=== PATIENT | female | born 1985 | race Caucasian/White ===

== ENCOUNTER 2025-07-15 15:28 | Emergency (ER) | payer OTHER, SELFPAY ==
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
[2025-07-15 15:53] VITALS: BP 105/74; PULSE 109; TEMP 37.2; O2SAT 99; BMI 46.1
--- OUTSIDE RECORDS SUMMARY | 2025-07-15 15:57 | XMS_ITS | Encounter Summary ---
Author Organization [facility] Address [address] [place] [address] Care Team Providers Care Sweet Goods Machine Operator Name Role Phone Carey Gan CNP Primary Care Provider +1- [phone] Encounter Details DateTypeDepartmentCare Team (Latest Contact Info)Wxvdiqjbfcf04/22/2025Travel Social History Tobacco UseTypesPacks/DayYears UsedDateSmoking Tobacco: NeverSmokeless Tobacco: NeverAlcohol UseStandard Drinks/WeekCommentsNo0 (1 standard drink = 0.6 oz pure alcohol)[facility] UtilitiesAnswerDate RecordedIn the past 12 months has the [employer], gas, oil, or water [employer] threatened to shut off services in your [...] InformationValueDate RecordedSex Assigned at BirthNot on fileLegal TuiAbqwtt64/25/2014 5:22 AM EDTGender IdentityFemale 07/27/2018 3:28 PM ESTSexual JrynmqvkhbxRzdjiaoj14/18/2022 10:03 AM EDT documented as of this encounter Plan of Treatment DateTypeDepartmentCare Team (Latest Contact Info)Symhddgiodc07/13/2026 9:00 AM ESTHospital Encounter [facility] Epilepsy Monitoring Unit [address] [place] [address] Ginger Ramirez MD [address] [place] [address] documented as of this encounter Visit Diagnoses Not on filedocumented in this encounter Care Teams Team MemberRelationshipSpecialtyStart DateEnd Date Carey Gan, ROLANDA [address] [place] [address] PCP - GeneralNurse Practitioner11/30/24documented as of this encounter
--- OUTSIDE RECORDS SUMMARY | 2025-07-15 15:57 | XMS_ITS | Clinical Summary ---
Author Organization [facility] Address [address] [place] [address] Care Team Providers Care Collision Estimator Name Role Phone Unknown, Provider Primary Care Provider Unavaila ble Allergies Active AllergyReactionsCriticalityNoted DateCommentsLevetiracetamHallucinations High03/20/2021 Medications MedicationSigDispense QuantityRefillsLast FilledStart DateEnd DateStatus lamoTRIgine 150 mg tablet (LaMICtaL) Take by mouth.Active Active Problems No known active problems Social History Tobacco UseTypesPacks/DayYears UsedDateSmoking Tobacco: Never Assessed CommentsUnknownSex and Gender InformationValueDate RecordedSex Assigned at Not on fileLegal EpsVoksnj95/01/2021 4:21 PM EDTGender IdentityNot on fileSexual OrientationNot on file Last Filed Vital Signs Vital SignReadingTime TakenCommentsBlood Jirqtxtb071/8304/03/2024 10:20 PM EDT Stpeu8238 10:20 PM LDJTgphopcuxiw91.9 ??C (98.4 ??F)03/20/2021 4:23 PM EDTRespiratory Iwle458810/27/2023 10:20 PM EDTOxygen Qzixzvhowi434%10/27/2023 10:20 PM EDTInhaled Oxygen Concentration--Vqiyzc388.7 kg (382 lb 15 oz) 03/20/2021 4:23 PM EDTHeight--Body Mass Index-- Plan of Treatment Health MaintenanceDue DateLast DoneCommentsMMR Vaccine (1 of 1 - Standard series)1985DTaP/Tdap/Td Vaccine (1 - Tdap)1991Varicella Vaccine (1 of 2 - 13+ 2-dose series)1997Hepatitis B Vaccine (1 of 3 - 19+ 3-dose series)2003HPV Vaccine (1 - 3-dose SCDM series)2011Mammogram 4COVID-19 Vaccine (2 - season)Influenza Vaccine (#1)501/, 05/08/2020, 05/08/2020, Additional history existsHIB VaccineAged OutNo longer eligible based on patient's age to complete this topicHepatitis A VaccineAged OutNo longer eligible based on patient's age to complete this topicIPV VaccineAged OutNo longer eligible based on patient's age to complete this topicMeningococcal ACWY VaccineAged OutNo longer eligible based on patient's age to complete this topicMeningococcal B VaccineAged OutNo longer eligible based on patient's age to complete this topicPneumococcal VaccineAged OutNo longer eligible based on patient's age to complete this topic RSV AntibodiesAged OutNo longer eligible based on patient's age to complete this topicRotavirus VaccineAged OutNo longer eligible based on patient's age to complete this [place] [address] Care Teams Team MemberRelationshipSpecialtyStart DateEnd Date Unknown, Provider PCP - General03/20/21
--- OUTSIDE RECORDS SUMMARY | 2025-07-15 15:57 | XMS_ITS | Clinical Summary ---
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 YDRNIYLPEKL80/28/2024 5:21 PM EDT HEPATITIS C ANTIBODY ORXOYSAcxlxqb49/23/2023 10:31 AM EDT Adult general medical examination from Last 3 Months or Most Recently Relevant to Health Maintenance Results * (ABNORMAL) Drug abuse screen 10a panel, urine (01/11/2025 8:08 PM EDT) ComponentValueRef RangeTest MethodAnalysis TimePerformed AtPathologist SignatureAmphetamine Screen, UrNot DetectedNot Detected LAB CHEMISTRY METHOD 01/11/2025 8:44 PM [facility] Barbiturate Screen, UrNot DetectedNot Detected LAB CHEMISTRY METHOD 01/11/2025 8:44 PM [facility] Benzodiazepine Screen, UrNot DetectedNot Detected LAB CHEMISTRY METHOD 01/11/2025 8:44 PM [facility] LABCocaine Screen, UrNot DetectedNot Detected LAB CHEMISTRY METHOD 01/11/2025 8:44 PM [facility] LABOpiate Screen, UrNot DetectedNot Detected LAB CHEMISTRY METHOD 01/11/2025 8:44 PM [facility] Cannabinoid (THC) Screen, UrDetected(A)Not Detected LAB CHEMISTRY METHOD 01/11/2025 8:44 PM [facility] LABMethadone Screen, UrineNot DetectedNot Detected LAB CHEMISTRY METHOD 01/11/2025 8:44 PM [facility] LABOxycodone Screen, UrNot DetectedNot Detected LAB CHEMISTRY METHOD 01/11/2025 8:44 PM [facility] Buprenorphine Screen UrineNot DetectedNot Detected LAB CHEMISTRY METHOD 01/11/2025 8:44 PM [facility] LABFentanyl, UrNot DetectedNot Detected LAB CHEMISTRY METHOD 01/11/2025 8:44 PM [facility] LABSpecimen (Source)Anatomical Location / LateralityCollection Method / VolumeCollection TimeReceived TimeUrineUrine specimen from urethra / UnknownNon-blood Collection / Znjpkkr7101/11/2025 8:08 PM EDT01/11/2025 8:22 PM EDT Narrative [facility] - 01/11/2025 8:44 PM EDT The following detection limits are used for the urine drugs of abuse: Amphetamine ? 1000 ng/mL Barbiturate ? 200 ng/mL Benzodiazepine ?200 ng/mL Cannabinoids ?50 ng/mL Cocaine ? 300 ng/mL Methadone ? 300 ng/mL Opiates ? 300 ng/mL Oxycodone ? 100 ng/mL Buprenorphine ? 10 ng/mL Fentanyl ?5 ng/mL Testing is for screening purposes only and should not be used in non-medical determinations. Confirmatory testing is available on request. Authorizing ProviderResult TypeResult StatusNamkaren MALLORY URINE ORDERABLESFinal ResultPerforming OrganizationAddressCity/State/ZIP CodePhone Number [facility] [address] [place] [address] * HPV molecular study qualitative (11/29/2024 2:16 PM EDT)ComponentValueRef RangeTest MethodAnalysis TimePerformed AtPathologist SignatureHPVNegative Negative METHOD APTIMA SARS-COV-2 [employer]EUA 12/01/2024 8:[facility] LABSpecimen (Source) Anatomical Location / LateralityCollection Method / VolumeCollection Time Received TimeBrushing/SpatulaCervix uteri structure / Dlvtjst5011/29/2024 2:16 PM EDT11/30/2024 9:18 PM EDT Narrative [facility] - 12/01/2024 8:08 PM EDT Testing performed by [facility] Authorizing ProviderResult TypeResult StatusCarey Gan NPLAB MOLECULAR DIAGNOSTICS ORDERABLESFinal ResultPerforming OrganizationAddressCity/State/ZIP CodePhone Number [facility] [address] [place] [address] * Rapid HIV 1, 2 with p24 antigen (01/15/2024 5:21 PM EDT)ComponentValueRef RangeTest MethodAnalysis TimePerformed AtPathologist SignatureRapid HIV 1&2 Vqy-AvfuiapdIvq-Lvextnle98/28/2024 6:16 PM [facility] LABp24 NySkd-MwwcknfxFym-Xjqndmdy72/28/2024 6:16 PM [facility] LABSpecimen (Source)Anatomical Location / LateralityCollection Method / VolumeCollection TimeReceived Time BloodVenous blood specimen / UnknownVenipuncture / Wcynaok0001/15/2024 5:21 PM EDT01/15/2024 5:53 PM EDT Narrative Authorizing ProviderResult TypeResult StatusSonia Beltre MDLAB BLOOD ORDERABLESFinal ResultPerforming OrganizationAddressCity/State/ZIP CodePhone Number [facility] [address] [place] [address] * Hepatitis C antibody screen (03/11/2023 10:31 AM EDT)ComponentValueRef Range Test MethodAnalysis TimePerformed AtPathologist SignatureHepatitis C Antibody NonreactiveNonreactive LAB CHEMISTRY METHOD 03/11/2023 2:31 PM [facility] LABSpecimen (Source) Anatomical Location / LateralityCollection Method / VolumeCollection Time Received TimeBloodVenous blood specimen / UnknownVenipuncture / Unknown 03/11/2023 10:31 AM EDT03/11/2023 10:31 AM EDT Narrative Authorizing ProviderResult TypeResult StatusRecar Gan NPLAB BLOOD ORDERABLESFinal ResultPerforming OrganizationAddressCity/State/ZIP CodePhone Number [facility] [address] [place] [address] from Last 3 Months or Most Recently Relevant to Health Maintenance Insurance Advance Directives * Full Code - Confirmed (Latest Code Status on File) Date ActivatedDate InactivatedComments01/11/2025 7:21 PM01/14/2025 4:52 PMThis code status was ascertained in the following way: Code status discussion: discussion with patient To update the patient's code status, place a code status order. Do not modify or discontinue any currently active code status orders. * Full Code - Confirmed Date ActivatedDate InactivatedComments12/26/2022 5:26 PM12/28/2022 7:42 PMThis code status was ascertained in the following way: Code status discussion: discussion with patient To update the patient's code status, place a code status order. Do not modify or discontinue any currently active code status orders. * Full Code - Confirmed Date ActivatedDate InactivatedComments10/30/2021 8:50 PM11/01/2021 4:37 PMThis code status was ascertained in the following way: Code status discussion: discussion with patient To update the patient's code status, place a code status order. Do not modify or discontinue any currently active code status orders. Care Teams Team MemberRelationshipSpecialtyStart DateEnd Date Carey Gan NP [address] [place] [address] PCP - GeneralFamily Medicine01/13/23
--- OUTSIDE RECORDS SUMMARY | 2025-07-15 15:57 | XMS_ITS | Patient Health Record ---
Author Organization [facility] Address [address] [place] [address] Care Team Providers Care Steno Typist Name Role Phone Marielena Jerry Unavailable [phone] Reason For Referral No Information Problems Problem Type SNOMED Code ICD Code Onset Dates Problem Status W/U Status Risk Notes Problem Shoulder joint pain (380627666) Left shoulder pain, unspecified chronicity (M25.512) Activeconfirmed Encounters Encounter Location Date Provider Diagnosis [facility] [address] [place] [address] [id number] 01/18/2025 Marielena Andriani Left shoulder pain, unspecified chronicity M25.512 [facility] [address] [place] [address] [id number] 01/19/2025 Marielena Andriani Left shoulder pain, unspecified chronicity M25.512 [facility] [address] [place] [address] [id number] 01/17/2025 Marielena Andriani Left shoulder pain, unspecified chronicity M25.512 Assessments Encounter Date Diagnosis (ICD Code) Assessment Notes Treatment Notes Treatment Clinical Notes Section Notes 01/18/2025 Left shoulder pain, unspecified chronicity (ICD-10 - M25.512) 01/19/2025Left shoulder pain, unspecified chronicity (ICD-10 - M25.512) 01/17/2025Left shoulder pain, unspecified chronicity (ICD-10 - M25.512) Plan Of Treatment No Information Insurance Providers Payer Name Payer Address Payer Phone Subscriber Number Group Number Insured Name Patient Relationship to Insured Coverage Start Date Coverage End Date [place] [employer] [address] [address] [place] [address] [id number] Ray Imani Self - patient is the insured
--- OUTSIDE RECORDS SUMMARY | 2025-07-15 15:57 | XMS_ITS | Encounter Summary ---
Author Organization [facility] Address [address] [place] [address] Care Team Providers Care Geomagnetician Name Role Phone Carey Gan CNP Primary Care Provider [phone] Encounter Details DateTypeDepartmentCare Team (Latest Contact Info)Zuzsjjcblfb57/20/2025Travel Social History Tobacco UseTypesPacks/DayYears UsedDateSmoking Tobacco: NeverSmokeless Tobacco: NeverAlcohol UseStandard Drinks/WeekCommentsNo0 (1 standard drink = 0.6 oz pure alcohol)[facility] UtilitiesAnswerDate RecordedIn the past 12 months has the [employer], gas, oil, or water [employer] threatened to shut off services in your [...] were you homeless or living in a snf (including now)?No01/16/2025 CommentsUnknownSex and Gender InformationValueDate RecordedSex Assigned at BirthNot on fileLegal LbrDsbmip32/25/2014 5:22 AM EDTGender IdentityFemale 07/27/2018 3:28 PM ESTSexual CpcwjfprhrgPkcchjew60/18/2022 10:03 AM EDT documented as of this encounter Plan of Treatment DateTypeDepartmentCare Team (Latest Contact Info)Vfpngiztpxf09/13/2026 9:00 AM ESTHospital Encounter [facility] [address] [place] [address] Ginger Ramirez MD [address] [place] [address] documented as of this encounter Visit Diagnoses Not on filedocumented in this encounter Care Teams Team MemberRelationshipSpecialtyStart DateEnd Date Carey Gan, ROLANDA [address] [facility] [address] [place] [address] PCP - GeneralNurse Practitioner11/30/24documented as of this encounter
--- OUTSIDE RECORDS SUMMARY | 2025-07-15 15:57 | XMS_ITS | Clinical Summary ---
Author Organization [facility] Address [address] [place] [address] Care Team Providers Care Skid Wrapper Name Role Phone Trinh Harley MD Primary Care Provider [phone] Allergies Active AllergyReactionsCriticalityNoted DateCommentsZolpidemHallucination 01/03/20223618QrsfuysctpyjpQaaxhxv59/17/2022 Social History Tobacco UseTypesPacks/DayYears UsedDateSmoking Tobacco: Never Assessed CommentsNoSex and Gender InformationValueDate RecordedSex Assigned at BirthNot on fileLegal BboQpxrzs82/03/2013 7:23 PM ESTGender IdentityNot on fileSexual OrientationNot on file Last Filed Vital Signs Vital SignReadingTime TakenCommentsBlood Nfskqiwc353/7106 1:00 PM EDT Fahcr256601/03/2022 1:00 PM WITTkmiohxbnbe85.9 ??C (98.4 ??F)01/03/2022 9:31 AM EDTRespiratory Zshv896501/03/2022 1:00 PM EDTOxygen Tlejpqhevi34%01/03/2022 1:00 PM EDTInhaled Oxygen Concentration--Weight--Tqaodm792 cm (5' 3 )01/03/2022 9:26 AM EDTBody Mass Index-- Plan of Treatment DateTypeDepartmentCare Team (Latest Contact Info)Ocmovrvzpih05/09/2026 2:30 PM EDTOffice Visit [facility] [address] [facility] [address] [place] [address] Health MaintenanceDue DateLast DoneCommentsHEPATITIS C VIRUS EENBIGKGR1984 HIV SCREENING XVHZIIMUUX63/15/1999HEP B VACCINE (1 of 3 - 19+ 3-dose series) 2003CERVICAL CANCER SCREENING FNAUYKIIXT29/15/2005HPV VACCINE (1 - 3-dose SCDM series)05/03/20111683CATTIJD75/16/202207/LIPID UHNGUARKL27/15/2024 MAMMOGRAM SCREENING DROVJKGJUT49/15/2024COVID-19 VACCINE ( season) 2025INFLUENZA VACCINE (#1)501/, 05/08/2020, 04/19/2019, Additional history existsTDAP (ADULT)Gytvrunzd15/16/2012PNEUMOCOCCAL VACCINE SERIESAged Out12/08/2012No longer eligible based on patient's age to complete this topic Insurance Care Teams Team MemberRelationshipSpecialtyStart DateEnd Trinh Harley MD PCP - GeneralFamily Medicine01/03/22
--- OUTSIDE RECORDS SUMMARY | 2025-07-15 15:57 | XMS_ITS | Clinical Summary ---
Author Organization [facility] Address [address] [place] [address] Care Team Providers Care Land Management Supervisor Name Role Phone Carey Gan CNP Primary Care Provider [phone] Allergies Active AllergyReactionsCriticalityNoted ErnyRkxmrvlcBexfldqjesizy67/26/2018 NortriptylineOther (See Comments)Ttmger2907/16/2018 Other reaction(s): facial tic Other reaction(s): facial tic ZolpidemOther (See Comments)High08/01/2021 Medications MedicationSigDispense QuantityRefillsLast FilledStart DateEnd DateStatus sertraline (ZOLOFT) 100 MG tablet Take 0.5 (one-half) tablet (50 mg total) by mouth nightly .05/19/2019Active busPIRone (BUSPAR) 30 MG tablet Take 1 (one) tablet (30 mg total) by mouth 2 (two) times a day .07/14/2019Active traZODone (DESYREL) 100 MG tablet Take 2 (two) tablets (200 mg total) by mouth nightly as needed for sleep .Active baclofen 5 mg Tab Take 1 (one) tablet (5 mg total) by mouth Three times daily as needed . 4Active lidocaine (LIDODERM) 5 % patch Place 1 (one) patch on the skin daily Remove & Discard patch within 12 hours or as directed by MD .Active lumateperone (Caplyta) 10.5 mg cap Take 1 (one) capsule (10.5 mg total) by mouth at bedtime .Active LORazepam (ATIVAN) 0.5 MG tablet Take 1 (one) tablet (0.5 mg total) by mouth every 8 (eight) hours as needed for anxiety (Days supply per fill: 30) .Active naloxone (NARCAN) 4 mg/actuation [place] Administer 1 spray into one nostril for known or suspected opioid overdose. If patient worsens or does not respond, may repeat in 2-3 minutes. . 2 each 2:54 PM EDT5Active methocarbamoL (ROBAXIN) 500 MG tablet Take 1 (one) tablet (500 mg total) by mouth 3 (three) times a day as needed for muscle spasms .Active hydrOXYzine (ATARAX) 50 MG tablet Take 1 (one) tablet (50 mg total) by mouth 3 (three) times a day as needed for itching .Active ondansetron (ZOFRAN-ODT) 4 MG disintegrating tablet Dissolve 1 (one) tablet (4 mg total) on top of tongue every 8 (eight) hours as needed for nausea . 20 tablet 02/13/2025 9:29 AM EDT5Active oxyCODONE-acetaminophen (Percocet) 5-325 mg per tablet Indications:S/P arthroscopy of left shoulderTake 1 (one) tablet by mouth every 6 (six) hours as needed for pain (Days supply per fill: 7) . 28 tablet 5Active acetaminophen (TYLENOL) 500 MG tablet Take 1 (one) tablet (500 mg total) by mouth every 6 (six) hours as needed for pain .Active diclofenac sodium 1% (Voltaren Arthritis Pain) 1 % Gel Indications:S/P arthroscopy of left shoulderApply 4 (four) g topically 4 (four) times a day as needed for pain Apply 2 grams to affected area up to 4 times a day as needed for pain. . 300 g 5Active gabapentin (NEURONTIN) 300 MG capsule Indications:S/P arthroscopy of left shoulderTake 2 (two) capsules (600 mg total) by mouth every 8 (eight) hours . 180 capsule 5Active doxepin (SINEQUAN) 75 MG capsule Take 1 (one) capsule (75 mg total) by mouth nightly .Active topiramate (TOPAMAX) 50 MG tablet Indications:Seizure disorder (HCC)Take 2 (two) tablets (100 mg total) by mouth every 12 (twelve) hours . 120 tablet 111/432095ctive Active Problems ProblemNoted DateDiagnosed DateTendinitis of left rotator cuff01/30/2025Shoulder pain01/17/2025 Assessment & Plan (01/17/2025 9:12 AM EDT): Reason For Hospitalization: ICD-10 M25.519 Imani Bell presented 01/16/2025 Shoulder pain01/16/2025 Assessment & Plan (01/18/2025 3:06 PM EDT): 39 y.o. RHD female with 3 month history of left shoulder pain after a seizure -D/W Dr. Shelton -MRI and left shoulder XR reviewed- no obvious acute abnormality to explain the pain -No acute orthopedic intervention -Pt is reporting neck pain and radicular symptoms- recommend further imaging of her c-spine -Pain control- pain management consulted -Will discuss further with attending -Recommend continued follow up with established orthopedist Fxzcsqa4404/06/2022OVID-19012/30/2020 Encounters DateTypeDepartmentCare FkrnDijazqtfipg77/22/2025 2:15 PM ESTTelemedicine [facility] [address] [place] [address] Rd [address] [place] [address] Crow Young MD Seizure disorder (HCC) (Primary Dx); Mood disorder; Psychogenic nonepileptic sbghlqm8907/10/20257733Znftft31/20/5121Uzlcrd01/30/2025 9:40 [facility]TTSCC[facility] [address] [place] [address] Rd [address] [place] [address] Crow Young MD Seizure disorder (HCC) (Primary Dx); Mood disorder; Psychogenic nonepileptic hpaycwn2405/18/20253668Wlgtuf11/28/2025Travelfrom Last 3 Months Family History Medical HistoryRelationCommentsAnesthesia problemsNeg HxClotting disorderNeg Hx Deep vein thrombosisNeg HxHeart diseaseNeg HxPulmonary embolismNeg HxSurgical complicationsNeg Hx Social History Tobacco UseTypesPacks/DayYears UsedDateSmoking Tobacco: NeverSmokeless Tobacco: Never Tobacco Cessation:Counseling Given: Not Answered Alcohol UseStandard Drinks/WeekCommentsNo0 (1 standard drink = 0.6 oz pure alcohol)[facility] UtilitiesAnswerDate RecordedIn the past 12 months has the [employer] gas, oil, or water [employer] threatened to shut off services in your [...] were you homeless or living in a detention (including now)?No01/16/2025 CommentsUnknownSex and Gender InformationValueDate RecordedSex Assigned at BirthNot on fileLegal OgfCckaai73/25/2014 5:22 AM EDTGender IdentityFemale 07/27/2018 3:28 PM ESTSexual RgulzynyavaJlqprjcr27/18/2022 10:03 AM EDT Last Filed Vital Signs Vital SignReadingTime TakenCommentsBlood Xwcjbadx625/70002/13/2025 9:37 AM EDT Hsaio398802/13/2025 9:37 AM KQWUffafuwwdxe59.2 ??C (97.2 ??F)02/13/2025 9:37 AM EDTRespiratory Kwnw460902/13/2025 9:37 AM EDTOxygen Sdtonitpfg67%02/13/2025 9:37 AM EDTInhaled Oxygen Concentration--Crbehw133.3 kg (263 lb)02/21/2025 9:11 AM CHECljpzu895 cm (5' 3 )02/21/2025 9:11 AM EDTBody Mass Index46.59002/21/2025 9:11 AM EDT Plan of Treatment DateTypeDepartmentCare Team (Latest Contact Info)Rfmgzozslgy39/13/2026 9:00 AM ESTHospital Encounter [facility] [address] [place] [address] Ginger Ramirez MD [address] [facility] [address] [place] [address] Health MaintenanceDue DateLast DoneCommentsDepression Screening/Follow-Up (PHQ-2/9)1996Varicella Vaccines (1 of 2 - 13+ 2-dose series)1997HIV Ajbgntkiu66/15/1999Hepatitis C Kpjcxvmpa58/15/2002Hepatitis B Vaccines (2 of 3 - 19+ 3-dose series)/0173Xzkanfxwk72/15/2024COVID-19 Vaccine ( - 2024- season)Wellness Visit6011/29/2024Pap Smear , 08/11/2018Cervical Cancer Ybyejcqrx42/13/2030HPV/Cotest Tetanus/Diphtheria/Pertussis (3 - Td or Tdap)01/14/2034 01/15/2024, 02/02/2012Zoster Vaccines (1 of 2)4RSV Vaccines (1 - 1-dose 75+ series)2059Pneumococcal VaccineAged Out12/08/2012No longer eligible based on patient's age to complete this topicInfluenza VaccineCompleted 06/01/2025, 08/06/2021, 05/08/2020, Additional history existsHIB VaccinesAged OutNo longer eligible based on patient's age to complete this topicHPV Vaccines (No Doses Required)CompletedHepatitis A VaccinesAged OutNo longer eligible based on patient's age to complete this topicIPV VaccinesAged OutNo longer eligible based on patient's age to complete this topicMeningococcal ACWY VaccineAged Out No longer eligible based on patient's age to complete this topicMeningococcal B VaccineAged OutNo longer eligible based on patient's age to complete this topic Rotavirus VaccinesAged OutNo longer eligible based on patient's age to complete this topic Medical Devices ImplantedTypeAreaManufacturerDevice IdentifierShelf Expiration DateModel / Serial / LotAnchor 4.75 X 22mm Tigertail Dbl Load Biocomp Swivelock C - [id number] Implanted:Qty: 1 on 02/13/2025 [facility] ShoulderARTHREX [id number] / / [id number] Med W/ Delivery Device Regeneten - [id number] Implanted:Qty: 1 on 02/13/2025 by [facility]: ShoulderSMITH [id number] / / [id number] Bone W/ Advanced Arthroscopic Delivery System - [id number] Implanted:Qty: 1 on 02/13/2025 by [facility]: ShoulderDYER NE11/11/[id number] / / [id number] Tendon Rotation Medical - [id number] Implanted:Qty: 1 on 02/13/2025 by [facility]igno [facility]: ShoulderDYER NE10/03/[id number] / / [id number] Insurance Advance Directives For more information, please contact: [phone] * Full Code (Latest Code Status on File) Date ActivatedDate InactivatedComments01/16/2025 10:14 PM01/20/2025 2:05 AM * Full Code Date ActivatedDate InactivatedComments04/06/2022 2:57 PM04/07/2022 3:29 PM Care Teams Team MemberRelationshipSpecialtyStart DateEnd Date Carey Gan, ROLANDA [address] [facility] [address] [place], [place] [id number] PCP - GeneralNurse Practitioner11/30/24
--- NOTE | 2025-07-15 16:13 | ED_ITS ---
HPI HPI - General Adult General Chief complaint: Nausea/Vomiting/Diarrhea Stated complaint: FLU SYMPTOMS/ SHAKING Time Seen by Provider: 07/15/25 15:46 Source: patient and family Mode of arrival: Wheelchair Limitations: no limitations History of Present Illness HPI narrative: Patient is a 40-year-old female with anxiety that presents with complaints of cough, headache, sore throat, chills, nausea, dry heaving, and diarrhea since yesterday. She did not have a thermometer at home to take her temperature. She did take her Ativan this morning but feels her anxiety has been somewhat out of control as she is getting in 5 days and does not want to be sick. Related Data Home Medications ?Medication ?Instructions ?Recorded ?Confirmed alprazolam 0.25 mg tablet 0.5 mg PO BID 07/15/2507/15 buspirone 30 mg tablet 30 mg PO BID 07/15/25 cyclobenzaprine 10 mg tablet 10 mg PO TID 07/15/25 diclofenac sodium 1 % topical gel 2 g topical DAILY 07/15/25 gabapentin 300 mg capsule 300 mg PO TID 07/15/2507/15 lorazepam 0.5 mg tablet 0.5 mg PO Q8H PRN anxiety 07/15/25 lumateperone 21 mg capsule 21 mg PO .QHS 07/15/2506/20 (Caplyta) nystatin 100,000 unit/gram topical 1 applic topical BI D 07/15/25 07/15/25 powder (Klayesta) topiramate 100 mg tablet 200 mg PO BID 07/15/2507/15 trazodone 100 mg tablet 200 mg PO .QHS 07/15/2506/20 vilazodone 20 mg tablet 20 mg PO DAILY 07/15/2506/20 Previous Rx's ?Medication ?Instructions ?Recorded dnqysmodhzndzum-msvhiewzrvgsepo-YC 10 ml PO Q4H PRN co ld symptoms 07/15/25 2 mg-30 mg-10 mg/5 mL oral syrup #100 mL (Bromfed DM) Allergies Allergy/AdvReac Type Severity Reaction Status Date / Time amitriptyline (From Elavil) Allergy Severe Anaphylaxis Verified 07/15/25 15:53 zolpidem (From Ambien) AdvReac Severe hallucinate Verified 07/15/25 15:53 levetiracetam (From Keppra) AdvReac Intermediate scratching Verified 07/15/25 15:53 Opioid HPI Opioid Management Most Recent Opioid Data: Last SEP Pain Assessment Today, 16:30 Review of Systems ROS Status of ROS 10 or more systems reviewed and unremark able except as noted in history and below PFSH PFSH Social History Little interest or pleasure in doing things: not at all Feeling down, depressed, or hopeless: not at all Exam Narrative Exam Narrative: General: No distress, age-appropriate Skin: Warm, dry, no pallor. No rash. Head: Normocephalic, atraumatic. Neck: Supple, non-tender. Eye: Pupils are equal, round and EOMI. No scleral icterus. Ears, Nose, Mouth, and Throat: TMs clear bilaterally, no nasal mucosal hypertrophy. Oral mucosa is moist, no posterior oropharynx erythema, uvula is mid-line. No tonsillar swelling or exudates. Cardiovascular: Regular Rate and Rhythm without murmur, gallop or rub. Respiratory: No accessory muscle use or respiratory distress. Lungs are clear to auscultation, no wheezing, rales or rhonchi Chest Wall: no tenderness Musculoskeletal: Full ROM of all extremities, no calf or popliteal tenderness GI: Abdomen is soft, non-distended, non tender to palpation. No masses appreciated. No rebound, guarding, or rigidity noted. Neurological: A&O x4. No cranial nerve dysfunction observed. No truncal ataxia. Moves all extremities. Sensation intact. Psychiatric: Cooperative and interactive. Normal mood and affect. Constitutional Vital Signs, click to edit/add: Last Vital Signs Temp 98.9 F 07/15/25 15:53 Pulse 97 H 07/15/25 17:44 Resp 16 07/15/25 17:44 BP 105/74 07/15/25 15:53 Pulse Ox 100 07/15/25 17:44 O2 Del Method Room Air 07/15/25 17:44 Documenting provider has reviewed patient's vital signs: yes Course Vital Signs Vital signs: Vital Signs Temperature 98.9 F 07/15/25 15:53 Pulse Rate 109 H 07/15/25 15:53 Respiratory Rate 18 07/15/25 15:53 Blood Pressure 105/74 07/15/25 15:53 Pulse Oximetry 99 07/15/25 15:53 Oxygen Delivery Method Room Air 07/15/25 15:53 Temperature 98.9 F 07/15/25 15:53 Pulse Rate 97 H 07/15/25 17:44 Respiratory Rate 16 07/15/25 17:44 Blood Pressure 105/74 07/15/25 15:53 Pulse Oximetry 100 07/15/25 17:44 Oxygen Delivery Method Room Air 07/15/25 17:44 Medical Decision Making MDM Narrative Medical decision making narrative: The patient is a 40-year-old female presenting with a constellation of symptoms, including cough, headache, sore throat, chills, nausea, dry heaving, and diarrhea for the past 24 hours. Patient was very anxious in the ER given her wedding is in 5 days and she does not want to be sick. She does have a emotional support dog with her. She did not asked to take her home Ativan dosage of 0.5 mg that she had with her and we did approve this. Negative results were obtained for rapid strep, influenza A/B, and COVID-19 tests, which suggest a viral etiology. Results discussed with patient and given the lack of bacterial infection and absence of red flag symptoms (e.g., high fever, respiratory distress), the shared decision was made to manage the patient conservatively with supportive care. Due to her symptoms of congestion and post- nasal drip, Bromfed was prescribed to help alleviate her cough, congestion, and other upper respiratory symptoms. The patient was instructed to monitor for any new or worsening symptoms, particularly fever or significant shortness of breath, which would warrant further evaluation. She was also advised on anxiety management techniques given her heightened stress about the upcoming wedding, and her Ativan regimen was reviewed for proper use. Follow-up with her primary care provider or return to the ER was recommended if symptoms fail to improve or worsen. The patient was discharged with appropriate instructions for home care and symptom management. Differential Diagnosis Differential Diagnosis: Influenza, COVID-19, viral URI, bacterial/viral pharyngitis Lab Data Lab results reviewed: Yes I reviewed the patient's lab results Labs: Lab Results 07/15/25 Range/Units 16:15 Influenza Type A Ag Negative Influenza Type B Ag Negative SARS-CoV-2 Ag (CV2AG) Negative (NEGATIVE) Streptococcus Screen Negative Discharge Plan Discharge Chief Complaint: Nausea/Vomiting/Diarrhea Clinical Impression: Upper respiratory infection, viral Patient Disposition: Home, Self-Care Time of Disposition Decision: 17:16 Condition: Good Mode of Transportation: Private Vehicle Prescriptions / Home Meds: New uficibnuacnhoxz-rjvnpsuew-TX [Bromfed DM] 2-30-10 mg/5 mL syrup 10 ml PO Q4H PRN (Reason: cold symptoms) Qty: 100 0RF No Action lorazepam 0.5 mg tablet 0.5 mg PO Q8H PRN (Reason: anxiety) alprazolam 0.25 mg tablet 0.5 mg PO BID cyclobenzaprine 10 mg tablet 10 mg PO TID buspirone 30 mg tablet 30 mg PO BID diclofenac sodium 1 % gel 2 g TOPICAL DAILY vilazodone 20 mg tablet 20 mg PO DAILY trazodone 100 mg tablet 200 mg PO .QHS topiramate 100 mg tablet 200 mg PO BID nystatin [Klayesta] 100,000 unit/gram powder 1 applic TOPICAL BID Caplyta 21 mg capsule 21 mg PO .QHS gabapentin 300 mg capsule 300 mg PO TID Print Language: Israeli Instructions: Upper Respiratory Infection (ED) Additional Instructions: Symptom Management: * Cough: * Use a cough suppressant or an jqbm-pyi-hjekmai (OTC) cough syrup if the cough is disturbing sleep. * Consider throat lozenges or honey in warm water to soothe irritation in your throat. * Headache: * OTC pain relievers such as acetaminophen (Tylenol) or ibuprofen (Advil) can help with the headache. * Ensure you stay hydrated and avoid dehydration, which can worsen headaches. * Sore Throat: * Gargle with warm salt water (1/2 teaspoon of salt in 8 oz of warm water) several times a day. * Stay hydrated, and avoid irritants like smoke. * Nausea and Dry Heaving: * Try eating small, bland meals (such as crackers, toast, or rice). * Drink shewrin tea or sherwin micky, which can sometimes help calm nausea. * If the nausea persists, consider taking an anti-nausea medication (such as meclizine), but only if it's safe for you. * Diarrhea: * Stay hydrated by drinking clear fluids like water, electrolyte drinks (e.g., Pedialyte), or broths. * If diarrhea persists for more than 48 hours, contact your primary doctor. Follow-Up Care: * Primary Care: * Contact your primary care provider in the next 1?2 days if your symptoms do not improve or if they worsen. * If you develop any new symptoms (such as a high fever, difficulty breathing, or worsening headache), return to the ER or seek immediate care. * Wedding Concerns: * Since you are getting soon, try to focus on self-care in the days leading up to the event. It?s important to take care of your mental and physical health during stressful times. If you're still feeling unwell, reaching out to your doctor for further guidance may help manage both the physical symptoms and your anxiety. Red Flags to Watch For: * If any of the following occur, return to the ER or seek immediate medical care: * High fever (above 100.4?F, especially if you are unable to bring it down). * Difficulty breathing or shortness of breath. * Severe abdominal pain, or if diarrhea lasts longer than 48 hours. * A sudden worsening of symptoms or a significant change in condition. Preventative Measures: * Hydration: Make sure to drink plenty of fluids to stay hydrated. * Rest: Try to get adequate rest to support your immune system and help manage your symptoms. * Avoid Stressors: While it's understandable to feel anxious about the upcoming wedding, try to manage your stress as much as possible with calming techniques. Referrals: Physician,Non-Staff, MD [Primary Care Provider] - 1 week Discharge Date/Time: 07/15/25 17:47
[2025-07-15] MEDS: ACETAMINOPHEN 325 MG TABLET 650 MG PO (16:30)
[2025-07-15 16:50] LABS: SARS-CoV-2 Ag NEGATIVE (NEGATIVE)
[2025-07-15 17:44] VITALS: PULSE 97; O2SAT 100
== END 2025-07-15 17:47 | disposition home or self-care (01) ==
PROVIDERS: Physician Assistant; Emergency Provider Student in an Organized Health Care Education/Training Program
DX: B34.9 Viral infection, unspecified (principal); R05.9 Cough, unspecified; R51.9 Headache, unspecified; J02.9 Acute pharyngitis, unspecified; R11.0 Nausea; R19.7 Diarrhea, unspecified
CPT/HCPCS: 87070; 87804; 87811; 87880; 99285